=== PATIENT | male | born 1940 | race Caucasian/White ===

== ENCOUNTER 2018-06-11 23:48 | Observation (INO) | payer MEDICARE, BC ==
[~2018-06-11] VITALS: Ht 165.1 cm; Wt 82.1 kg
--- NOTE | 2018-06-11 23:55 | NUR ---
BY EMS TO ROOM
--- NOTE | 2018-06-11 23:56 | NUR ---
PT. TO ROOM 6 VIA EMS WITH C/O FEVER CHILLS AND WEAKNESS STATRING TODAY. PT. ALSO STATES HE FELL TODAY, SKIN TEARS TO LFA. PT. IS ALERT AND ORIENTED X 3. TEMP. 100.3.
[2018-06-12] VITALS (7 sets, daily range): BP systolic 104–145; BP diastolic 46–61
[2018-06-12 00:46] LABS: HEMATOCRIT 36.8 % (39.0-50.0); HEMOGLOBIN 12.1 g/dl (14.0-18.0); IMMATURE GRANULOCYTES 0.5 % (0.0-5.0); MEAN CELL VOLUME 95.1 fL CALC (80.0-100.0); MEAN CORPUSCULAR HGB 31.3 pG CALC (26.0-32.0); MEAN CORPUSCULAR HGB CONC 32.9 g/L CALC (32.0-36.0); NEUT# 4.79 thou/uL (1.82-7.42); RED BLOOD COUNT 3.87 mill/uL (4.70-6.10); RED CELL DISTRI WIDTH 13.2 % (11.5-15.5)
[2018-06-12] MEDS ORDERED: TAMSULOSIN HCL0.4 MG PO (00:46)
[2018-06-12] MEDS ORDERED: CLOPIDOGREL75 MG PO (00:48)
[2018-06-12] MEDS ORDERED: ELIQUIS5 MG PO (00:48)
[2018-06-12] MEDS ORDERED: FINASTERIDE5 MG PO (00:49)
[2018-06-12] MEDS ORDERED: METOPROLOL50 M1 PO (00:50)
[2018-06-12] MEDS ORDERED: ATORVASTATIN CA40 MG PO (00:50)
[2018-06-12] MEDS ORDERED: GLIPIZIDE ER5 M1 PO (00:51)
[2018-06-12] MEDS ORDERED: RANITIDINE150 MG PO (00:51)
[2018-06-12] MEDS ORDERED: METFORMIN HYD1000 MG PO (00:52)
[2018-06-12] MEDS ORDERED: PRESERVISION ARED1 PO (00:53)
[2018-06-12] MEDS ORDERED: VITAMIN B-121000 MCG PO (00:53)
--- NOTE | 2018-06-12 00:56 | NUR ---
RESTING ON STRETCHER, NO C/O AT THIS TIME.
[2018-06-12 01:05] LABS: ALBUMIN 3.8 g/dL (3.2-5.0); ALKALINE PHOSPHATASE 63 u/l (38-126); ANION GAP 14 (6-22 (CALC)); BILIRUBIN, TOTAL 0.5 mg/dL (0.0-1.4); BUN 16 mg/dL (8-23); BUN/CREATININE RATIO 13 (12-20 (CALC)); CARBON DIOXIDE 22 mmol/l (22-30); CHLORIDE 106 mmol/l (95-108); CREATININE 1.2 mg/dL (0.7-1.3); GFR 58 ML/MIN (>=60 (CALC)); GFR FOR AFR.AMER. > 60 ML/MIN (>=60 (CALC)); POTASSIUM 4.2 mmol/l (3.5-5.1); SODIUM 137 mmol/l (137-146)
--- NOTE | 2018-06-12 01:09 | NUR ---
IVF. IV ABT. STARTED PER MD ORDER.
[2018-06-12 01:11] LABS: INTERNATIONAL NORMALIZED RATIO 1.1 RATIO (0.7-1.3); PROTHROMBIN TIME 11.3 SECONDS (9.0-12.5)
[2018-06-12 01:27] LABS: MYOGLOBIN 651 ng/mL (0 - 121); SGOT/AST 51 u/l (19-48)
--- NOTE | 2018-06-12 02:09 | NUR ---
RESTING QUIETLY EYES CLOSED, NO C/O PAIN OR DISCOMFORT OFFERED.
[2018-06-12 02:41] LABS: URINE BILIRUBIN - DIPSTICK NEGATIVE (NEGATIVE); URINE BLOOD DIPSTICK SMALL (NEGATIVE); URINE COLOR YELLOW; URINE GLUCOSE - DIPSTICK NEGATIVE (NEGATIVE); URINE KETONE NEGATIVE (NEGATIVE); URINE LEUK ESTERASE NEGATIVE (NEGATIVE); URINE NITRITE - DIPSTICK NEGATIVE (Negative); URINE PH 5.5 (4.5-8.0); URINE PROTEIN - DIPSTICK 30 mg/dL (NEG-TRACE); URINE SPECIFIC GRAVITY 1.025; URINE UROBILINOGEN - DIPSTICK 0.2 E.U./dL (0.2)
[2018-06-12 02:43] LABS: BARBITURATES NEGATIVE (NEGATIVE); COCAINE NEGATIVE (NEGATIVE); METHADONE NEGATIVE (NEGATIVE); OXCYCODONE NEGATIVE (NEGATIVE); TETRAHYDROCANNABIONOL NEGATIVE (NEGATIVE); TRICYLIC ANTIDEPRESSANTS NEGATIVE (NEGATIVE)
[2018-06-12 02:48] LABS: URINE SQUAMOUS EPITHELIAL CELL RARE EPI/hpf (0-FEW); URINE WBC 0-2 WBC/hpf (0-5)
--- NOTE | 2018-06-12 03:02 | NUR ---
PO TYLENOL GIVEN PER MD ORDER.
--- NOTE | 2018-06-12 03:37 | NUR ---
IN ROOM TO DISCUSS CLINICAL FINDINGS WITH PT. AND , VERBALIZED UNDERSTANDING.
--- NOTE | 2018-06-12 04:01 | NUR ---
Admission Note Report Given to: JAMES RN Transported by: Wheelchair X Stretcher Transported with: X Nurse Transporter X Patent IV O2 X Inspector Technician
--- NOTE | 2018-06-12 04:05 | NUR ---
PT. TAKEN TO HI FLOOR VIA STRETCHER, NO C/O.
--- NOTE | 2018-06-12 04:15 | NUR ---
PT ARRIVED TO FLOOR VIA STRETCHER ACCOMPANIED BY ED STAFF AND . PT AMBULATED FROM STRETCHER TO BED, GATE WEAK, X1 ASSIST. ALERT AND ORIENTED. IV # 20 LAC, APPEARS HEALTHY, PATENT, IV FLUIDS HUNG PER EMAR ORDERS. TELE MONITOR IN PLACE. PT DENIES ANY PAIN OR DISCOMFORTS AT THIS TIME. PT ORIENTED TO ROOM AND CALL MIL[facility] SYSTEM. SAFETY PRECAUTIONS IN PLACE. WILL CONTINUE TO MONITOR.
[2018-06-12 05:21] LABS: HEMATOCRIT 33.7 % (39.0-50.0); HEMOGLOBIN 11.2 g/dl (14.0-18.0); IMMATURE GRANULOCYTES 0.3 % (0.0-5.0); MEAN CELL VOLUME 94.4 fL CALC (80.0-100.0); MEAN CORPUSCULAR HGB 31.4 pG CALC (26.0-32.0); MEAN CORPUSCULAR HGB CONC 33.2 g/L CALC (32.0-36.0); NEUT# 4.26 thou/uL (1.82-7.42); RED BLOOD COUNT 3.57 mill/uL (4.70-6.10); RED CELL DISTRI WIDTH 13.2 % (11.5-15.5)
[2018-06-12 05:32] LABS: ALBUMIN 3.2 g/dL (3.2-5.0); ALKALINE PHOSPHATASE 55 u/l (38-126); ANION GAP 13 (6-22 (CALC)); BILIRUBIN, TOTAL 0.6 mg/dL (0.0-1.4); BUN 15 mg/dL (8-23); BUN/CREATININE RATIO 13 (12-20 (CALC)); CARBON DIOXIDE 21 mmol/l (22-30); CHLORIDE 108 mmol/l (95-108); CREATININE 1.2 mg/dL (0.7-1.3); GFR 58 ML/MIN (>=60 (CALC)); GFR FOR AFR.AMER. > 60 ML/MIN (>=60 (CALC)); POTASSIUM 3.7 mmol/l (3.5-5.1); SGOT/AST 19 u/l (19-48); SODIUM 138 mmol/l (137-146)
--- NOTE | 2018-06-12 07:10 | NUR ---
REPORT RECEIVED FROM JAMESRN;PT OOB RESTING IN RECLINER WITH SPOUSE AT BEDSIDE;INTRODUCED SELF TO PT AND POC DISCUSSED;RESPIRATIONS EVEN AND UNLABORED ON RA;PT DENIES ANY CURRENT PAIN OR NEEDS;TELE MONITORING IN PLACE;CONTACT PRECAUTIONS NOTED;PT ENCOURAGED TO CALL FOR ASSISTANCE IF NEEDED;FALL PRECAUTIONS IN PLACE WITH CALL LIGHT IN REACH;WILL CONTINUE TO MONITOR
--- NOTE | 2018-06-12 08:50 | NUR ---
PT OOB RESTING IN RECLINER WITH SPOUSE AT BEDSIDE;VS OBTAINED AND ASSESSMENT COMPLETED, CURRENT TEMP 98.7;PT DENIES ANY CURRENT PAIN OR DISCOMFORTS, PAIN SCALING AND REPORTING EDUCATED;RESPIRATIONS EVEN AND UNLABORED ON RA,CLEAR LUNG SOUNDS NOTED;ABDOMEN DISTENDED/SOFT ON PALPATION AND ACTIVE IN ALL 4 QUADRANTS;WEAK PEDAL PULSES;SKIN TEARS NOTED TO LEFT WRIST, BANDAGES IN PLACE;TELE MONITORING IN PLACE;EMS #20G TO LAC INFUSING NS @125ML/HR,SITE APPEARS HEALTHY;CONTACT PRECAUTIONS IN PLACE;ACCUCHECK 113, NO COVERAGE NEEDED AT THIS TIME;PT DENIES ANY ADDITIONAL NEEDS AND IS ENCOURAGED TO CALL FOR ASSISTANCE IF NEEDED;FALL PRECAUTIONS IN PLACE WITH CALL LIGHT IN REACH;WILL CONTINUE TO MONITOR
--- NOTE | 2018-06-12 11:43 | NUR ---
PT OOB RESTING IN RECLINER WITH SPOUSE AT BEDSIDE;RESPIRATIONS EVEN AND UNLABORED ON RA;PT DENIES ANY CURRENT PAIN OR NEEDS;TELE MONITORING IN PLACE;IV FLUIDS CONTINUE TO INFUSE WITH EASE TO LAC;ASSESSMENT REMAINS UNCHANGED AT THIS TIME;CALL LIGHT IN REACH;WILL CONTINUE TO MONITOR
--- NOTE | 2018-06-12 12:30 | NUR ---
PT RESTING IN RECLINER SHAKING, TEMP 99.2;BLANKETS REMOVED AND AC LOWERED; NOTIFIED OF INCREASING TEMP;NO NEW ORDERS RECEIVED AT THIS TIME;WILL CONTINUE TO MONITOR
--- NOTE | 2018-06-12 12:57 | NUR ---
AT BEDSIDE DISCUSSING POC WITH PT AND SPOUSE.
--- NOTE | 2018-06-12 16:50 | NUR ---
PT RESTING IN BED;RESPIRATIONS EVEN AND UNLABORED ON RA;PT DENIES ANY CURRENT PAIN OR NEEDS;CURRENT TEMP 101.4, NOTIFIED OF LACK OF ORDER. BLANKETS REMAIN REMOVED AND AC LOWERED;TELE MONITORING IN PLACE;IV SITE PATENT;ACCUCHECK 147 AT THIS TIME;PT DENIES ANY ADDITIONAL NEEDS AND IS ENCOURAGED TO CALL FOR ASSISTANCE IF NEEDED;CALL LIGHT IN REACH;WILL CONTINUE TO MONITOR
--- NOTE | 2018-06-12 21:44 | NUR ---
PT MEDICATED ORDERS PROVIDE AND ASSESSED. DENIES ANY NEEDS AT THIS TIME. CALL LIGHT AT BEDSIDE. WILL CONTINUE TO MONITOR.
[2018-06-13 01:14] VITALS: BP 155/64
--- NOTE | 2018-06-13 01:34 | NUR ---
PT MEDICATED FOR TEMP 101.1,ROOM IS COOLED, BLANKETS REMOVED. WILL CONTINUE TO MONITOR FOR RESPONSE TO MEDICATION AND ENVIRONMENTAL CHANGES. PT DENIES ANY OTHER NEEDS AT THIS TIME. CALL LIGHT AT SIDE.
[2018-06-13 05:30] VITALS: BP 136/61
--- NOTE | 2018-06-13 05:40 | NUR ---
PT MEDICATED ORDERS PROVIDE. NO S/O DISTRESS NOTED. DENIES ANY NEEDS AT THIS TIME. IV ANTIBIOITICS ARE RUNNING AT THIS TIME. SITE APPEARS HEALTHY.
[2018-06-13 05:53] LABS: HEMATOCRIT 36.4 % (39.0-50.0); HEMOGLOBIN 12.1 g/dl (14.0-18.0); IMMATURE GRANULOCYTES 0.2 % (0.0-5.0); MEAN CELL VOLUME 94.1 fL CALC (80.0-100.0); MEAN CORPUSCULAR HGB 31.3 pG CALC (26.0-32.0); MEAN CORPUSCULAR HGB CONC 33.2 g/L CALC (32.0-36.0); NEUT# 2.75 thou/uL (1.82-7.42); RED BLOOD COUNT 3.87 mill/uL (4.70-6.10); RED CELL DISTRI WIDTH 13.3 % (11.5-15.5)
[2018-06-13 05:56] LABS: ALBUMIN 3.3 g/dL (3.2-5.0); ALKALINE PHOSPHATASE 56 u/l (38-126); AMYLASE 52 u/l (30-110); ANION GAP 13 (6-22 (CALC)); BILIRUBIN, TOTAL 0.4 mg/dL (0.0-1.4); BUN 13 mg/dL (8-23); BUN/CREATININE RATIO 13 (12-20 (CALC)); CARBON DIOXIDE 23 mmol/l (22-30); CHLORIDE 107 mmol/l (95-108); GFR > 60 ML/MIN (>=60 (CALC)); GFR FOR AFR.AMER. > 60 ML/MIN (>=60 (CALC)); LIPASE 73 u/l (23-300); MAGNESIUM 1.6 mg/dL (1.6-2.3); POTASSIUM 4.2 mmol/l (3.5-5.1); SGOT/AST 25 u/l (19-48); SODIUM 139 mmol/l (137-146); TOTAL PROTEIN 6.2 g/dL (6.3-8.2)
--- NOTE | 2018-06-13 07:20 | NUR ---
REPORT RECEIVED FROM KENZIERN;PT RESTING IN SEMI FOWLERS POSITION WATCHING TV;INTRODUCED SELF TO PT AND POC DISCUSSED;RESPIRATIONS EVEN AND UNLABORED ON RA;PT DENIES ANY CURRENT PAIN OR NEEDS;DROPLET PRECAUTIONS REMAIN IN PLACE FOR POSITIVE STREP;TELE MONITORING NOTED;PT ENCOURAGED TO CALL FOR ASSISTANCE IF NEEDED;FALL PRECAUTIONS IN PLACE WITH CALL LIGHT IN REACH;WILL CONTINUE TO MONITOR
--- NOTE | 2018-06-13 08:30 | NUR ---
PT RESTING IN SEMI FOWLERS POSITION;VS OBTAINED AND ASSESSMENT COMPLETED;PT DENIES ANY CURRENT PAIN OR DISCOMFORTS,PAIN SCALE AND REPORTING EDUCATED;RESPIRATIONS EVEN AND UNLABORED ON RA,CLEAR LUNG SOUNDS;ABDOMEN DISTENDED/SOFT ON PALPATION AND ACTIVE IN ALL 4 QUADRANTS;SKIN TEARS NOTED TO LFA,DRESSINGS IN PLACE;EMS #20 TO LAC FLUSHED AND PATENT,PT EDUCATED ON IV SITE EXPIRATION DATE AND AGREES TO SITE CHANGE AFTER SEEMING MD;TELE MONITORING IN PLACE;PT DENIES ANY ADDIITONAL NEEDS AT THIS TIME AND IS ENCOURAGED TO CALL FOR ASSISTANCE IF NEEDED;CALL LIGHT IN REACH;WILL CONTINUE TO MONITOR
[2018-06-13 08:31] VITALS: BP 161/61
--- NOTE | 2018-06-13 09:48 | NUR ---
Attempted treatment at 930am but he was in restroom, assisting him.
[2018-06-13 11:15] VITALS: BP 167/60
--- NOTE | 2018-06-13 11:33 | NUR ---
PHYSICAL THERPAY AT BEDSIDE WORKING WITH PT.
--- NOTE | 2018-06-13 12:01 | NUR ---
PT WAS SEEN TODAY FOR GAIT TRAINING. HE WAS SITTING IN THE RECLINER WITH IN THE ROOM. PT WAS MORE ALERT AND HAD BETTER MOBILITY TODAY THAN YESTERDAY. HE WAS ABLE TO STAND UP FROM SITTING USING HIS ARMS. HIS IMMEDIATE STANDING BALANCE WAS MORE STABLE. HE THEN PROCEEDED TO AMBULATE BEDSIDE WITH RW AND CGA WITH GAITBELT ~3 ROUNDS OF ~10 FT. HIS COG WAS SHIFTED ANTERIORLY HE MAINTAINED FLEXED POSTURE DURING AMBULATION WHICH INCREASES HIS RISK FOR FALLS. HE WAS CONSTANTLY REMINDED TO STAND UPRIGHT AND MAINTAIN EYE LEVEL LINE OF SIGHT, PT EXECUTED. HE THEN SAT BACK DOWN IN THE RECLINER WITH VERBAL CUES ON HAND PLACEMENT. NO ADVERSE RXNS NOTED AT THE END OF TX. LEFT PT WITH CALL MILAN WITHIN HIM, STILL IN THE ROOM.
--- NOTE | 2018-06-13 12:05 | NUR ---
PT RESTING IN RECLINER WITH SPOUSE AT BEDSIDE;RESPIRATIONS EVEN AND UNLABORED ON RA;PT DENIES ANY CURRENT PAIN OR NEEDS;TELE MONITORING IN PLACE;ACCUCHECK 195, PT COVERED WITH NOVOLOG SLIDING SCALE PER ORDER;SAFTEY PRECAUTIONS REMAIN IN PLACE;CALL LIGHT IN REACH;WILL CONTINUE TO MONITOR
--- NOTE | 2018-06-13 12:47 | NUR ---
AT BEDSIDE DISCUSSING POC WITH PT AND SPOUSE.
--- NOTE | 2018-06-13 14:00 | NUR ---
UNSUCCESSFUL ATTEMPT AT STARTING A NEW IV BY THIS WRITTER, PT REFUSEDS IV CHANGE AT THIS TIME.
[2018-06-13 15:35] VITALS: BP 156/73
--- NOTE | 2018-06-13 15:45 | NUR ---
PT OOB RESTING IN RECLINER WITH SPOUSE AT BEDSIDE;CURRENT TEMP 101.0, PT MEDICATED WITH PRN TYLENOL 650MG PO AT THIS TIME;RESPIRATIONS EVEN AND UNLABORED ON RA;PT DENIES ANY PAIN OR DISCOMFORTS;TELE MONITORING IN PLACE;SAFETY PRECAUTIONS REINFORCED;WILL CONTINUE TO MONITOR FOR EFFECTIVENESS.
[2018-06-13 19:00] VITALS: BP 133/64
[2018-06-14 00:27] VITALS: BP 169/69
--- NOTE | 2018-06-14 00:40 | NUR ---
PT MEDICATED FOR TEMP OF 100.0, PT SYMPTOMATIC W/CHILLS, DENIES ANY OTHER NEEDS AT THIS TIME. LIGHTS TURNED OUT AND TV ON LOW. CALL LIGHT AT BEDSIDE.
--- NOTE | 2018-06-14 03:40 | NUR ---
PT SLEEPING SOUNDLY AT THIS TIME. NO S/O DISTRESS NOTED. CALL LIGHT AT SIDE.
[2018-06-14 04:48] LABS: HEMATOCRIT 36.9 % (39.0-50.0); HEMOGLOBIN 12.5 g/dl (14.0-18.0); IMMATURE GRANULOCYTES 0.3 % (0.0-5.0); MEAN CELL VOLUME 92.5 fL CALC (80.0-100.0); MEAN CORPUSCULAR HGB 31.3 pG CALC (26.0-32.0); MEAN CORPUSCULAR HGB CONC 33.9 g/L CALC (32.0-36.0); NEUT# 2.13 thou/uL (1.82-7.42); RED BLOOD COUNT 3.99 mill/uL (4.70-6.10); RED CELL DISTRI WIDTH 13.2 % (11.5-15.5)
[2018-06-14 05:11] LABS: ALBUMIN 3.4 g/dL (3.2-5.0); ALKALINE PHOSPHATASE 58 u/l (38-126); ANION GAP 14 (6-22 (CALC)); BILIRUBIN, TOTAL 0.4 mg/dL (0.0-1.4); BUN 14 mg/dL (8-23); BUN/CREATININE RATIO 14 (12-20 (CALC)); CARBON DIOXIDE 23 mmol/l (22-30); CHLORIDE 106 mmol/l (95-108); GFR > 60 ML/MIN (>=60 (CALC)); GFR FOR AFR.AMER. > 60 ML/MIN (>=60 (CALC)); MAGNESIUM 1.5 mg/dL (1.6-2.3); SGOT/AST 32 u/l (19-48); SODIUM 139 mmol/l (137-146); TOTAL PROTEIN 6.4 g/dL (6.3-8.2)
[2018-06-14 05:23] VITALS: BP 113/63
--- NOTE | 2018-06-14 05:43 | NUR ---
PT MEDICATED ORDERS PROVIDE. ORTHOSTATIC BP'S OBTAINED AT THIS TIME: SUPPINE 113/63, SITTING 156/78, STANDING 168/75. PT TOLERATED WELL AND DENIED ANY DIZZINESS. COFFEE PROVIDED. ANTIBIOTIC IV THERAPY ADMINISTERING AT THIS TIME.
--- NOTE | 2018-06-14 07:20 | NUR ---
REPORT RECEIVED FROM ZENAIDA ESPINO;PT OOB RESTING IN RECLINER;INTRODUCED SELF TO PT AND POC DISCUSSED;RESPIRATIONS EVEN AND UNLABORED ON RA;PT DENIES ANY CURRENT PAIN OR NEEDS;TELE MONITORING IN PLACE;ENCOURAGED PT TO CALL FOR ASSISTANCE IF NEEDED;CALL LIGHT IN REACH;WILL CONTINUE TO MONITOR
[2018-06-14 08:26] VITALS: BP 166/61
--- NOTE | 2018-06-14 08:30 | NUR ---
PT OOB RESTING IN RECLINER;VS OBTAINED AND ASSESSMENT COMPLETED;PT DENIES ANY CURRENT PAIN OR DISCOMFORTS,PAIN SCALE AND REPORTING EDUCATED;RESPIRATIONS EVEN AND UNLABORED ON RA,CLEAR LUNG SOUNDS;ABDOMEN SOFT ON PALPATION AND ACTIVE IN ALL 4 QUADRANTS;WEAK PEDAL PULSES;DRESSING TO LFA SKIN TEAR CDI;TELE MONITORING IN PLACE;ACCUCHECK 176, PT COVERGED WITH SLIDING SCALE NOVOLOG PER ORDER;PT DENIES ANY ADDITIONAL NEEDS AT THIS TIME AND IS ENCOURAGED TO CALL FOR ASSISTANCE IF NEEDED;CALL LIGHT IN REACH;WILL CONTINUE TO MONITOR
--- NOTE | 2018-06-14 09:18 | NUR ---
PT WAS SEEN FOR GT AND TX. HE STOOD UP INDEPENDENTLY FROM THE RECLINER AND WAS ABLE TO MAINTAIN GOOD IMMEDIATE STANDING BALANCE. PT THEN AMBULATED BEDSIDE WITH HIS SINGLE CANE, CGA WITH GAIT BELT WAS PROVIDED TO ENSURE SAFETY. PT APPEARED TO BE MORE STABLE TODAY. HE WAS THEN INSTRUCTED ON THEREX. SUCH [id number] AND STANDING SUPPORTED HEEL RAISES TO STRENGTHEN B LE. PT PERFORMED THESE EXERCISES WHILE HOLDING ONTO BED RAIL. HE DID NOT SHOW INSTABILITY ALTHROUGHOUT THE ACTIVITIES. RETURNED TO RECLINER INDEPENDENTLY WHEN DONE. CALL MILAN WITHIN REACH. REINFORCED FALL PRECAUTION.
--- NOTE | 2018-06-14 11:40 | NUR ---
PT OOB RESTING IN RECLINER WITH SPOUSE AT BEDSIDE;RESPIRATIONS EVEN AND UNLABORED ON RA;PT DENIES ANY CURRENT PAIN OR NEEDS;ROBITUSSIN AC ADMINISTERED PER REQUEST;ACCUCHECK 193, PT COVERED WITH SLIDING SCALE NOVOLOG PER ORDER;PT ENCOURAGED TO CALL FOR ASSISTANCE IF NEEDED;CALL LIGHT IN REACH;WILL CONTINUE TO MONITOR
--- NOTE | 2018-06-14 12:15 | NUR ---
AT BEDSIDE DISCUSSING POC INCLUDING DISCHARGE HOME,PT AND SPOUSE VERBALIZE UNDERSTANDING.
[2018-06-14 12:37] VITALS: BP 148/85
[2018-06-14] MEDS ORDERED: AUGMENTIN875TAB PO (14:11)
[2018-06-14] MEDS ORDERED: ROBITUSSIN AC10 ML PO (14:12)
--- NOTE | 2018-06-14 15:55 | NUR ---
PT RESTING IN RECLINER WITH SPOUSE AT BEDSIDE;[place] ,CASE MANAGEMENT AT BEDSIDE DISCUSSING HOME HEALTH OPTIONS;RESPIRATIONS EVEN AND UNLABORED ON RA;IV SITE TO LAC REMOVED WITH CATHETER INTACT;TELE MONITORING IN PLACE;CALL LIGHT IN REACH;WILL CONTINUE TO MONITOR
--- NOTE | 2018-06-14 16:20 | NUR ---
ALL DISCHARGE INSTRUCTIONS PROVIDED AT THIS TIME, PRESCRIPTION FOR ROBITUSSIN AC IN HAND;ALL QUESTIONS ANSWERED;PT AND SPOUSE DENY ANY ADDITIONAL NEEDS;WHEELCHAIR TO BE PROVIDED FOR DISCHARGE HOME.
--- NOTE | 2018-06-14 16:37 | NUR ---
Discharge instructions given. Patient verbalizes understanding of same. Discharged in stable condition via Wheelchair to Home with spouse. All belongings sent with pt. Pt transported to er lobby in stable condition via wheel chair accompanied by diamond mounter and spouse.
== END 2018-06-14 16:36 | disposition home health service (06) ==
LOC: ED 23:48 → ED-I 06-12 03:19 → ED 06-12 03:38 → MS2 06-12 03:39
PROVIDERS: Emergency Medicine; ADMIT Internal Medicine Nephrology; ATTEND Internal Medicine Nephrology
DX: J02.0 Streptococcal pharyngitis (principal); I10 Essential (primary) hypertension; E11.42 Type 2 diabetes mellitus with diabetic polyneuropathy; I48.2 Chronic atrial fibrillation; I25.10 Atherosclerotic heart disease of native coronary artery without angina pectoris; N40.0 Benign prostatic hyperplasia without lower urinary tract symptoms; K21.9 Gastro-esophageal reflux disease without esophagitis; E87.2 Acidosis; Z95.1 Presence of aortocoronary bypass graft; Z95.5 Presence of coronary angioplasty implant and graft; Z86.73 Personal history of transient ischemic attack (TIA), and cerebral infarction without residual deficits; R53.1 Weakness; R42 Dizziness and giddiness; R55 Syncope and collapse
CPT/HCPCS: G0378

== ENCOUNTER → 2018-06-20 | Outpatient (REF) | payer MEDICARE, BC ==
[~2018-06-20] MED LIST: ATORVASTATIN CA40 MG PO; AUGMENTIN875TAB PO; CLOPIDOGREL75 MG PO; ELIQUIS5 MG PO; FINASTERIDE5 MG PO; GLIPIZIDE ER5 M1 PO; METFORMIN HYD1000 MG PO; METOPROLOL50 M1 PO; PRESERVISION ARED1 PO; RANITIDINE150 MG PO; ROBITUSSIN AC10 ML PO; TAMSULOSIN HCL0.4 MG PO; VITAMIN B-121000 MCG PO
== END | disposition home or self-care (01) ==
LOC: DI 15:56
PROVIDERS: ATTEND Internal Medicine
DX: J18.9 Pneumonia, unspecified organism (principal)